=== PATIENT | male | born 1955 | race Caucasian/White ===

== ENCOUNTER 2021-09-28 17:12 | Observation (INO) | payer BC, MEDICARE ==
[2021-09-28] MEDS ORDERED: Dexamethasone 10 MG/ML SDV IVPUSH ONE (17:43)
[2021-09-28] MEDS ORDERED: Albuterol/Ipratropium 3.0-0.5 MG/3 ML Neb Soln NEB ONE ×2 (17:43→18:39)
[2021-09-28] MEDS ORDERED: Magnesium Sulfate (4.06 MEQ/ML) 5 GM/10 ML SDV IV STA (17:43)
--- NOTE | 2021-09-28 17:46 | EDM.PDOC ---
ED HPI GENERAL MEDICAL PROBLEM - General Chief Complaint: Respiratory Problem Stated Complaint: SHORTNESS OF BREATHE,HYPERTENSIVE Time Seen by Provider: 09/28/21 17:24 Source of Information: Reports: Patient History Limitations: Reports: No Limitations - History of Present Illness INITIAL COMMENTS - FREE TEXT/NARRATIVE: Patient is a 6-year-old male with history of high blood pressure and COPD presents today for cough and shortness of breath. Patient has had a productive cough and was concerned he may have had pneumonia as he gets sick quite frequently. Patient arrived he was satting around 70% on room air was placed on oxygen. States that he does have some shortness of breath as well but nothing worse than what his baseline normally does per the patient. Denies any chest pain fever chills abdominal pain no other symptoms. - Related Data Allergies Allergy/AdvReac Type Severity Reaction Status Date / Time No Known Allergies Allergy Verified 09/28/21 17:30 Home Meds: Home Meds Aspirin [Ecotrin EC] 81 mg PO DAILY 12/17/19 [History] Sacubitril/Valsartan [Entresto 24 mg-26 mg Tablet] 1 tab PO ASDIRECTED 12/17/19 [History] atorvaSTATin Calcium [Lipitor] 20 mg PO DAILY 12/17/19 [History] carvediloL [Coreg] 12.5 mg PO DAILY 12/17/19 [History] atorvaSTATin Calcium [Lipitor] 20 mg PO DAILY 30 Days #30 tablet 09/28/21 [Rx] carvediloL [Carvedilol] 12.5 mg PO DAILY 30 Days #30 tablet 09/28/21 [Rx] lisinopriL [Lisinopril] 5 mg PO DAILY 30 Days #30 tablet 09/28/21 [Rx] Past Medical History Cardiovascular History: Reports: CAD, High Cholesterol, Hypertension Respiratory History: Reports: COPD, SOB Musculoskeletal History: Reports: Fracture Endocrine/Metabolic History: Reports: Obesity/BMI 30+ - Past Surgical History Cardiovascular Surgical History: Reports: Coronary Artery Stent, Other (See Below) Musculoskeletal Surgical History: Reports: ORIF Social & Family History - Tobacco Use Second Hand Smoke Exposure: No - Caffeine Use Caffeine Use: Reports: None - Recreational Drug Use Recreational Drug Use: No - Living Situation & Occupation Living situation: Reports: , with Spouse, with Family (Daughter) Occupation: Employed ([employer]) ED ROS GENERAL - Review of Systems Review Of Systems: See Below Constitutional: Reports: No Symptoms HEENT: Reports: No Symptoms Respiratory: Reports: Shortness of Breath Cardiovascular: Reports: No Symptoms Endocrine: Reports: No Symptoms GI/Abdominal: Reports: No Symptoms : Reports: No Symptoms Musculoskeletal: Reports: No Symptoms Skin: Reports: No Symptoms Neurological: Reports: No Symptoms Psychiatric: Reports: No Symptoms Hematologic/Lymphatic: Reports: No Symptoms Immunologic: Reports: No Symptoms ED EXAM, GENERAL - Physical Exam Exam: See Below Exam Limited By: No Limitations General Appearance: Alert, WD/WN, No Apparent Distress Eye Exam: Bilateral Eye: EOMI Throat/Mouth: Normal Inspection Head: Atraumatic, Normocephalic Neck: Normal Inspection Respiratory/Chest: No Respiratory Distress, Lungs Clear, Normal Breath Sounds Cardiovascular: Normal Peripheral Pulses, Regular Rate, Rhythm GI/Abdominal: Normal Bowel Sounds, Soft, Non-Tender Extremities: Normal Inspection, Normal Range of Motion, Non-Tender Neurological: Alert, Oriented, Normal Cognition, Normal Gait Course - Vital Signs Last Recorded V/S: Last Vital Signs Temp 98.4 F 09/28/21 17:28 Pulse 89 09/28/21 17:28 Resp 20 09/28/21 17:28 BP 162/93 H 09/28/21 17:28 Pulse Ox 73 L 09/28/21 17:28 - Orders/Labs/Meds Orders: Active Orders 24 hr Category Date Time Status RT Aerosol Therapy [RC] ASDIRECTED Care 09/28/21 17:44 Active RT Aerosol Therapy [RC] ASDIRECTED Care 09/28/21 18:40 Active Azithromycin [Zithromax] Med 09/28/21 18:45 Active 500 mg PO Q24H Magnesium Sulfate/Water [Magnesium Sulfate in Water 2 Med 09/28/21 18:07 Active GM/50 ML] 2 gm Premix Bag 1 bag IV ONETIME cefTRIAXone [Rocephin in Dextrose,Iso-Osm 1 GM/50 ML] 1 Med 09/28/21 18:33 Active gm Premix Bag 1 bag IV ONETIME Medication Orders Azithromycin (Azithromycin 250 Mg Tab) 500 mg PO Q24H [facility] Last Admin: 09/28/21 18:53 Dose: 500 mg Documented by: ADITYA Magnesium Sulfate 2 gm/ Premix 50 mls @ 12.5 mls/hr IV ONETIME ONE Stop: 09/28/21 22:06 Last Admin: 09/28/21 18:18 Dose: Not Given Documented by: ADITYA Ceftriaxone Sodium/Dextrose 1 (gm/ Premix) 50 mls @ 100 mls/hr IV ONETIME ONE Stop: 09/28/21 19:02 Last Admin: 09/28/21 18:54 Dose: 100 mls/hr Documented by: ADITYA Labs: Laboratory Tests 09/28/21 09/28/21 09/28/21 Range/Units 17:23 17:23 18:02 WBC 9.46 (4.0-11.0) K/uL RBC 6.07 H (4.50-5.90) M/uL Hgb 18.5 H (13.0-17.0) g/dL Hct 57.3 H (38.0-50.0) % MCV 94.4 (80.0-98.0) fL MCH 30.5 (27.0-32.0) pg MCHC 32.3 (31.0-37.0) g/dL RDW Std Deviation 56.1 (28.0-62.0) fl RDW Coeff of Imtiaz 16 H (11.0-15.0) % Plt Count 140 L (150-400) K/uL MPV 11.90 (7.40-12.00) fL Neut % (Auto) 60.5 (48.0-80.0) % Lymph % (Auto) 22.0 (16.0-40.0) % [place] % (Auto) 17.0 H (0.0-15.0) % Eos % (Auto) 0.3 (0.0-7.0) % Baso % (Auto) 0.2 (0.0-1.5) % Neut # (Auto) 5.7 (1.4-5.7) K/uL Lymph # (Auto) 2.1 (0.6-2.4) K/uL [place] # (Auto) 1.6 H (0.0-0.8) K/uL Eos # (Auto) 0.0 (0.0-0.7) K/uL Baso # (Auto) 0.0 (0.0-0.1) K/uL Nucleated RBC % 0.0 /100WBC Nucleated RBCs # 0 K/uL Sodium 142 (136-148) mmol/L Potassium 4.1 (3.5-5.1) mmol/L Chloride 103 (98-107) mmol/L Carbon Dioxide 32.1 H (21.0-32.0) mmol/L BUN 20 H (7.0-18.0) mg/dL Creatinine 0.9 (0.8-1.3) mg/dL Est Cr Clr Drug Dosing 88.62 mL/min Estimated GFR (MDRD) > 60.0 ml/min Glucose 99 (74-106) mg/dL Calcium 9.1 (8.5-10.1) mg/dL Total Bilirubin 0.8 (0.2-1.0) mg/dL AST 38 H (15-37) IU/L ALT 42 (14-63) IU/L Alkaline Phosphatase 84 (46-116) U/L Troponin I < 0.050 (0.000-0.056) ng/mL Total Protein 8.0 (6.4-8.2) g/dL Albumin 3.8 (3.4-5.0) g/dL Globulin 4.2 H (2.6-4.0) g/dL Albumin/Globulin Ratio 0.9 (0.9-1.6) SARS-CoV-2 RNA ([place]) NEGATIVE (NEGATIVE) Meds: Medications Generic Name Dose Route Start Last Admin Trade Name Freq PRN Reason Stop Dose Admin Azithromycin 500 mg 09/28/21 18:45 09/28/21 18:53 Azithromycin 250 Mg Tab PO 500 mg Q24H FRAN Administration Magnesium Sulfate 2 gm/ Premix 50 mls @ 12.5 mls/hr 09/28/21 18:07 09/28/21 18:18 IV 09/28/21 22:06 Not Given ONETIME ONE Ceftriaxone Sodium/Dextrose 1 50 mls @ 100 mls/hr 09/28/21 18:33 09/28/21 18:54 gm/ Premix IV 09/28/21 19:02 100 mls/hr ONETIME ONE Administration Discontinued Medications Generic Name Dose Route Start Last Admin Trade Name Freq PRN Reason Stop Dose Admin Albuterol/Ipratropium 3 ml 09/28/21 17:43 09/28/21 18:14 Albuterol/Ipratropium 3.0-0.5 Mg/3 Ml Neb Soln NEB 09/28/21 17:44 3 ml ONETIME ONE Administration Albuterol/Ipratropium 3 ml 09/28/21 18:39 09/28/21 18:53 Albuterol/Ipratropium 3.0-0.5 Mg/3 Ml Neb Soln NEB 09/28/21 18:40 3 ml ONETIME ONE Administration Dexamethasone 10 mg 09/28/21 17:43 09/28/21 18:17 Dexamethasone 10 Mg/Ml Sdv IVPUSH 09/28/21 17:44 10 mg ONETIME ONE Administration Magnesium Sulfate 1 gm/ Sodium 102 mls @ 102 mls/hr 09/28/21 18:00 09/28/21 18:17 Chloride IV 09/28/21 18:59 102 mls/hr ONETIME ONE Administration - Re-Assessments/Exams Free Text/Narrative Re-Assessment/Exam: 09/28/21 18:56 Patient still satting 77% after receiving steroids and magnesium neb treatment. Patient will be admitted for COPD exacerbation patient also given antibiotics. Departure - Departure Time of Disposition: 18:56 Disposition: Home, Self-Care 01 Condition: Good, Fair Clinical Impression: COPD exacerbation - Discharge Information *PRESCRIPTION DRUG MONITORING PROGRAM REVIEWED*: Not Applicable *COPY OF PRESCRIPTION DRUG MONITORING REPORT IN PATIENT ROBERT: Not Applicable Prescriptions: carvediloL [Carvedilol] 12.5 mg PO DAILY 30 Days #30 tablet atorvaSTATin Calcium [Lipitor] 20 mg PO DAILY 30 Days #30 tablet lisinopriL [Lisinopril] 5 mg PO DAILY 30 Days #30 tablet Forms: ED Department Discharge Critical Care Note - Critical Care Note Total Time (mins): 45 Comments: Critical Care Procedure Note Authorized and Performed by: Dr. Rodriguez Total critical care time: Approximately Due to a high probability of clinically significant, life threatening deterioration, the patient required my highest level of preparedness to i ntervene emergently and I personally spent this critical care time directly and personally managing the patient. This critical care time included obtaining a history; examining the patient; pulse oximetry; ordering and review of studies; arranging urgent treatment with development of a management plan; evaluation of patient's response to treatment; frequent reassessment; and, discussions with other providers. This critical care time was performed to assess and manage the high probability of imminent, life-threatening deterioration that could result in multi-organ failure. It was exclusive of separately billable procedures and treating other patients and teaching time. Sepsis Event Note (ED) - Evaluation Sepsis Screening Result: No Definite Risk - Focused Exam Vital Signs: Vital Signs Temp Pulse Resp BP Pulse Ox 09/28/21 17:28 98.4 F 89 20 162/93 H 73 L - My Orders Last 24 Hours: My Active Orders 09/28/21 17:44 RT Aerosol Therapy [RC] ASDIRECTED 09/28/21 18:07 Magnesium Sulfate/Water [Magnesium Sulfate in Water 2 GM/50 ML] 2 gm Premix Bag 1 bag IV ONETIME 09/28/21 18:33 cefTRIAXone [Rocephin in Dextrose,Iso-Osm 1 GM/50 ML] 1 gm Premix Bag 1 bag IV ONETIME 09/28/21 18:40 RT Aerosol Therapy [RC] ASDIRECTED 09/28/21 18:45 Azithromycin [Zithromax] 500 mg PO Q24H - Assessment/Plan Last 24 Hours: My Active Orders 09/28/21 17:44 RT Aerosol Therapy [RC] ASDIRECTED 09/28/21 18:07 Magnesium Sulfate/Water [Magnesium Sulfate in Water 2 GM/50 ML] 2 gm Premix Bag 1 bag IV ONETIME 09/28/21 18:33 cefTRIAXone [Rocephin in Dextrose,Iso-Osm 1 GM/50 ML] 1 gm Premix Bag 1 bag IV ONETIME 09/28/21 18:40 RT Aerosol Therapy [RC] ASDIRECTED 09/28/21 18:45 Azithromycin [Zithromax] 500 mg PO Q24H Plan: Patient is a 6-year-old male presents today for shortness of breath and cough. Patient was satting 78% on room air is now 2 L at 100%. Patient has history of COPD we will give patient steroids nebulizers x-ray EKG and reassess.
[2021-09-28 18:04] LABS: BLOOD UREA NITROGEN,BUN 20 mg/dL (7.0-18.0); CARBON DIOXIDE,CO2 32.1 mmol/L (21.0-32.0); CHLORIDE,CL 103 mmol/L (98-107); GLUCOSE RANDOM 99 mg/dL (74-106); POTASSIUM,K 4.1 mmol/L (3.5-5.1); SODIUM,NA 142 mmol/L (136-148)
[2021-09-28] MEDS ORDERED: Magnesium Sulfate/Water 2 GM in Premix Bag 1 BAG IV ONE (18:07)
--- NOTE | 2021-09-28 18:32 | CR ---
HISTORY: Shortness of breath. COPD. TECHNIQUE: Portable frontal view the chest. COMPARISON: None. FINDINGS: No airspace consolidation. No pleural effusion or pneumothorax. Pulmonary vasculature is within normal limits. Cardiomediastinal silhouette is upper normal size. Aortic atherosclerotic calcifications. IMPRESSION: No acute cardiopulmonary abnormality. Dictated by Major Aponte MD @ 09/28/2021 6:31:21 PM (Electronically Signed)
[2021-09-28] MEDS ORDERED: cefTRIAXone 1 GM in Premix Bag 1 BAG IV ONE (18:33)
[2021-09-28] MEDS ORDERED: Azithromycin 250 MG Tab PO SCH (18:45)
[2021-09-28] MEDS: Albuterol/Ipratropium 3.0-0.5 MG/3 ML Neb Soln NEB SCH (23:12)
[2021-09-28] MEDS ORDERED: Carvedilol 3.125 MG Tab PO SCH (23:45)
--- NOTE | 2021-09-28 23:56 | PCM.HP.2 ---
H&P History of Present Illness - General Date of Service: 09/28/21 Admit Problem/Dx: Admission Diagnosis/Problem Admission Diagnosis/Problem COPD, Moderate chronic obstructive pulmonary disease - History of Present Illness Initial Comments - Free Text/Narative: 66 yo male with pmh of HTN, CAD, COPD who presents to the ED with complaint of productive cough of greenish sputum for past several days. He thought he needed antibiotics for a pneumonia. He denies any shortness of breath, chest pain, or fevers. He reports he has been out of his medications for six months. He has entresto on his medication list but denies any history of CHF. In the ED he was noted to be satting 78% on RA. He was given duonebs and solumedrol for suspect COPD exacerbation and is now feeling better. He is still requiring 2 L NC to keep sats above 90%. - Related Data Allergies/Adverse Reactions: Allergies Allergy/AdvReac Type Severity Reaction Status Date / Time No Known Allergies Allergy Verified 09/28/21 21:16 Home Medications: Home Meds atorvaSTATin Calcium [Lipitor] 20 mg PO DAILY 30 Days #30 tablet 09/28/21 [Rx] carvediloL [Carvedilol] 12.5 mg PO DAILY 30 Days #30 tablet 09/28/21 [Rx] lisinopriL [Lisinopril] 5 mg PO DAILY 30 Days #30 tablet 09/28/21 [Rx] Albuterol Sulfate [Albuterol Sulfate Hfa] 8.5 gm IH Q4H #1 hfa.aer.ad 09/29/21 [Rx] Aspirin [Ecotrin EC] 81 mg PO DAILY #30 09/29/21 [Rx] Fluticasone Propion/Salmeterol [Advair 250-50 Diskus] 1 each IH Q8H #1 disk.w.dev 09/29/21 [Rx] levoFLOXacin [Levaquin] 750 mg PO DAILY #6 tab 09/29/21 [Rx] predniSONE 40 mg PO WITHBREAKFAST #5 tab 09/29/21 [Rx] Past Medical History - Past Health History Medical/Surgical History: Denies Medical/Surgical History HEENT History: Reports: None Cardiovascular History: Reports: CAD, High Cholesterol, Hypertension Respiratory History: Reports: COPD, SOB Gastrointestinal History: Reports: None Other Genitourinary History: Pt voiding freely, denies trouble emptying bladder. Musculoskeletal History: Reports: Fracture Endocrine/Metabolic History: Reports: Obesity/BMI 30+ - Infectious Disease History Infectious Disease History: Reports: None - Past Surgical History Cardiovascular Surgical History: Reports: Coronary Artery Stent, Other (See Below) Musculoskeletal Surgical History: Reports: ORIF Social & Family History - Family History Family Medical History: No Pertinent Family History - Tobacco Use Years of Tobacco use: 30 Packs/Tins Daily: 1 Second Hand Smoke Exposure: No - Caffeine Use Caffeine Use: Reports: None - Alcohol Use Days Per Week of Alcohol Use: 7 Number of Drinks Per Day: 1 Total Drinks Per Week: 7 Date of Last Drink: 09/27/21 Time of Last Drink: 18:00 - Recreational Drug Use Recreational Drug Use: No - Living Situation & Occupation Living situation: Reports: , with Spouse, with Family (Daughter) Occupation: Employed ([employer]) H&P Review of Systems - Review of Systems: Review Of Systems: Comprehensive ROS is negative, except as noted in HPI. Exam - Exam Exam: See Below - Vital Signs Vital Signs: Last Vital Signs Temp 36.6 C 09/28/21 23:14 Pulse 82 09/28/21 23:14 Resp 18 09/28/21 23:14 BP 146/78 H 09/28/21 23:14 Pulse Ox 90 L 09/28/21 23:14 Weight: 108.862 kg - Exam General: Alert, Oriented Neck: Supple Lungs: Clear to Auscultation, Normal Respiratory Effort Cardiovascular: Regular Rate, Regular Rhythm GI/Abdominal Exam: Normal Bowel Sounds, Soft, Non-Tender Extremities: Non-Tender, No Pedal Edema Skin: Warm, Dry, Intact Neurological: Cranial Nerves Intact - Patient Data Lab Results Last 24 hrs: Laboratory Results - last 24 hr 09/28/21 09/28/21 09/28/21 Range/Units 17:23 17:23 18:02 WBC 9.46 (4.0-11.0) K/uL RBC 6.07 H (4.50-5.90) M/uL Hgb 18.5 H (13.0-17.0) g/dL Hct 57.3 H (38.0-50.0) % MCV 94.4 (80.0-98.0) fL MCH 30.5 (27.0-32.0) pg MCHC 32.3 (31.0-37.0) g/dL RDW Std Deviation 56.1 (28.0-62.0) fl RDW Coeff of Imtiaz 16 H (11.0-15.0) % Plt Count 140 L (150-400) K/uL MPV 11.90 (7.40-12.00) fL Neut % (Auto) 60.5 (48.0-80.0) % Lymph % (Auto) 22.0 (16.0-40.0) % [place] % (Auto) 17.0 H (0.0-15.0) % Eos % (Auto) 0.3 (0.0-7.0) % Baso % (Auto) 0.2 (0.0-1.5) % Neut # (Auto) 5.7 (1.4-5.7) K/uL Lymph # (Auto) 2.1 (0.6-2.4) K/uL [place] # (Auto) 1.6 H (0.0-0.8) K/uL Eos # (Auto) 0.0 (0.0-0.7) K/uL Baso # (Auto) 0.0 (0.0-0.1) K/uL Nucleated RBC % 0.0 /100WBC Nucleated RBCs # 0 K/uL Sodium 142 (136-148) mmol/L Potassium 4.1 (3.5-5.1) mmol/L Chloride 103 (98-107) mmol/L Carbon Dioxide 32.1 H (21.0-32.0) mmol/L BUN 20 H (7.0-18.0) mg/dL Creatinine 0.9 (0.8-1.3) mg/dL Est Cr Clr Drug Dosing 88.62 mL/min Estimated GFR (MDRD) > 60.0 ml/min Glucose 99 (74-106) mg/dL Calcium 9.1 (8.5-10.1) mg/dL Total Bilirubin 0.8 (0.2-1.0) mg/dL AST 38 H (15-37) IU/L ALT 42 (14-63) IU/L Alkaline Phosphatase 84 (46-116) U/L Troponin I < 0.050 (0.000-0.056) ng/mL Total Protein 8.0 (6.4-8.2) g/dL Albumin 3.8 (3.4-5.0) g/dL Globulin 4.2 H (2.6-4.0) g/dL Albumin/Globulin Ratio 0.9 (0.9-1.6) SARS-CoV-2 RNA ([place]) NEGATIVE (NEGATIVE) Result Diagrams: 09/29/21 06:31 09/29/21 06:31 Sepsis Event Note - Evaluation Sepsis Screening Result: No Definite Risk - Focused Exam Vital Signs: Vital Signs Temp Pulse Resp BP Pulse Ox 09/28/21 23:14 36.6 C 82 18 146/78 H 90 L 09/28/21 19:44 36.4 C 86 18 176/88 H 95 09/28/21 19:33 84 18 174/86 H 95 09/28/21 17:28 36.9 C 89 20 162/93 H 73 L - Problem List (1) Acute and chronic respiratory failure with hypoxia SNOMED Code(s): 71124534, 837237232 ICD Code: J96.21 - ACUTE AND CHRONIC RESPIRATORY FAILURE WITH HYPOXIA Status: Acute (2) COPD exacerbation SNOMED Code(s): 984737756 ICD Code: J44.1 - CHRONIC OBSTRUCTIVE PULMONARY DISEASE W (ACUTE) EXACERBATION Status: Acute Problem List Initiated/Reviewed/Updated: Yes Orders Last 24hrs: Active Orders 24 hr Category Date Time Status Patient Status [ADT] Routine ADT 09/28/21 18:57 Active RT Aerosol Therapy [RC] ASDIRECTED Care 09/28/21 17:44 Active RT Aerosol Therapy [RC] ASDIRECTED Care 09/28/21 18:40 Active RT Aerosol Therapy [RC] ASDIRECTED Care 09/28/21 21:36 Active Regular Diet [DIET] Diet 09/29/21 Breakfast Active BASIC METABOLIC PANEL,BMP [CHEM] Routine Lab 09/29/21 05:30 Ordered CBC WITH AUTO DIFF [HEME] Routine Lab 09/29/21 05:30 Ordered Albuterol/Ipratropium [DuoNeb 3.0-0.5 MG/3 ML] Med 09/29/21 00:00 Active 3 ml NEB Q6HRRT Azithromycin [Zithromax] Med 09/28/21 18:45 Active 500 mg PO Q24H carvediloL [Coreg] Med 09/28/21 23:45 Ordered 12.5 mg PO Q24H cefTRIAXone [Rocephin in Dextrose,Iso-Osm 1 GM/50 ML] 1 Med 09/29/21 18:00 Ordered gm Premix Bag 1 bag IV Q24H Medication Orders Albuterol/Ipratropium (Albuterol/Ipratropium 3.0-0.5 Mg/3 Ml Neb Soln) 3 ml NEB Q6HRRT [facility] Last Admin: 09/28/21 23:12 Dose: 3 ml Documented by: OTILIO Azithromycin (Azithromycin 250 Mg Tab) 500 mg PO Q24H [facility] Last Admin: 09/28/21 18:53 Dose: 500 mg Documented by: ADITYA Carvedilol (Carvedilol 3.125 Mg Tab) 12.5 mg PO Q24H [facility] Ceftriaxone Sodium/Dextrose 1 (gm/ Premix) 50 mls @ 100 mls/hr IV Q24H [facility] Assessment/Plan Comment:: 66 yo male admitted for COPD exacerbation with hypoxica Hypoxia: on 2 L NC COPD exacerbation: will treat with solumedrol, duonebs, and antibiotics. HTN: will restart HTN medications.
[2021-09-29] MEDS: Albuterol/Ipratropium 3.0-0.5 MG/3 ML Neb Soln NEB SCH ×2 (05:50→13:39)
[2021-09-29 07:32] LABS: BLOOD UREA NITROGEN,BUN 18 mg/dL (7.0-18.0); CARBON DIOXIDE,CO2 32.5 mmol/L (21.0-32.0); CHLORIDE,CL 106 mmol/L (98-107); GLUCOSE RANDOM 126 mg/dL (74-106); POTASSIUM,K 4.8 mmol/L (3.5-5.1); SODIUM,NA 142 mmol/L (136-148)
[2021-09-29] MEDS ORDERED: methylPREDNISolone Sodium Succinate 40 MG/1 ML SDV IVPUSH SCH (09:00)
--- NOTE | 2021-09-29 13:35 | PCM.DCSUM1 ---
Discharge Summary - Hospital Course Free Text/Narrative:: The patient is a 66-year-old male, on day 2 of service, who has a significant past medical history of chronic obstructive pulmonary disease and congestive heart failure, who was admitted to the medical floor due to a COPD exacerbation. Throughout his short hospital stay the patient was treated with various antibiotics including Rocephin 1 g per IV route every 24 hours and azithromycin 500 mg per oral route every 24 hours. To decrease the inflammation in his lungs and to improve breathing he was also treated with Solu-Medrol 60 mg per IV route and duo nebulizer treatments. Due to his CHF history the patient was also treated with carvedilol 12.5 mg per oral route every 24 hours. He was also supplied with oxygen, and was saturating 95% on 2 L. This morning he had a walking trial done which deciphered that his home oxygen requirement would be 2 L as well and that is what he will be discharged with via [employer]. Upon discharge the patient will be supplied with a prescription for Levaquin in order to treat any underlying bacterial infection that he is suffering from, he will be given an albuterol inhaler as well as Advair to improve his breathing. He will be given prescriptions for his past medical history including aspirin, atorvastatin, carvedilol, and lisinopril. The patient is a smoker and has been advised to quit smoking. He is also been educated on being compliant with his medication and taking them at scheduled times. Lastly he has been counseled on returning to the hospital if he has increasing respiratory difficulty, shortness of breath, chest pain, and/or palpitations. The patient is also to follow-up with his primary care provider in 1 to 2 weeks time. The patient is now stable and can be discharged home safely. - Discharge Data Discharge Date: 09/29/21 Discharge Disposition: Home, Self-Care 01 Condition: Stable - Referral to Home Health Primary Care Physician: PCP None - Patient Instructions Diet: Heart Healthy Diet Activity: As Tolerated Showering/Bathing: May Shower Other/Special Instructions: -Return to the hospital if you have increasing respiratory difficulty, shortness of breath, chest pain, palpitations. -Take your medication at scheduled times. -Follow-up with your PCP Dr. Farfan - Discharge Plan *PRESCRIPTION DRUG MONITORING PROGRAM REVIEWED*: Not Applicable *COPY OF PRESCRIPTION DRUG MONITORING REPORT IN PATIENT ROBERT: Not Applicable Prescriptions/Med Rec: Fluticasone Propion/Salmeterol [Advair 250-50 Diskus] 1 each IH Q8H #1 disk.w.dev Albuterol Sulfate [Albuterol Sulfate Hfa] 8.5 gm IH Q4H #1 hfa.aer.ad carvediloL [Carvedilol] 12.5 mg PO DAILY 30 Days #30 tablet Aspirin [Ecotrin EC] 81 mg PO DAILY #30 levoFLOXacin [Levaquin] 750 mg PO DAILY #6 tab atorvaSTATin Calcium [Lipitor] 20 mg PO DAILY 30 Days #30 tablet lisinopriL [Lisinopril] 5 mg PO DAILY 30 Days #30 tablet predniSONE 40 mg PO WITHBREAKFAST #5 tab Home Medications: Home Meds atorvaSTATin Calcium [Lipitor] 20 mg PO DAILY 30 Days #30 tablet 09/28/21 [Rx] carvediloL [Carvedilol] 12.5 mg PO DAILY 30 Days #30 tablet 09/28/21 [Rx] lisinopriL [Lisinopril] 5 mg PO DAILY 30 Days #30 tablet 09/28/21 [Rx] Albuterol Sulfate [Albuterol Sulfate Hfa] 8.5 gm IH Q4H #1 hfa.aer.ad 09/29/21 [Rx] Aspirin [Ecotrin EC] 81 mg PO DAILY #30 09/29/21 [Rx] Fluticasone Propion/Salmeterol [Advair 250-50 Diskus] 1 each IH Q8H #1 disk.w.dev 09/29/21 [Rx] levoFLOXacin [Levaquin] 750 mg PO DAILY #6 tab 09/29/21 [Rx] predniSONE 40 mg PO WITHBREAKFAST #5 tab 09/29/21 [Rx] Oxygen Therapy Mode: Nasal Cannula Oxygen Flow Rate (L/min): 2 Patient Handouts: Chronic Respiratory Failure, Carvedilol Tablets, Home Oxygen Use, Adult, Atorvastatin tablets, Lisinopril Oral Tablets, Acute Respiratory Failure, Adult Referrals: Zaid Farfan MD [Physician] - 10/08/21 4:00 pm - Discharge Summary/Plan Comment DC Time >30 min.: Yes Total # of Minutes for Discharge Time: 35 minutes - Review of Systems General: Denies: Fever, Weakness, Fatigue HEENT: Denies: Headaches, Sore Throat Pulmonary: Denies: Shortness of Breath, Cough Cardiovascular: Denies: Chest Pain, Palpitations Gastrointestinal: Denies: Abdominal Pain Genitourinary: Denies: Dysuria - Patient Data Vitals - Most Recent: Last Vital Signs Temp 98.3 F 09/29/21 11:35 Pulse 71 09/29/21 11:35 Resp 16 09/29/21 11:35 BP 132/67 09/29/21 11:35 Pulse Ox 85 L 09/29/21 11:35 Weight - Most Recent: 240 lb I&O - Last 24 hours: Intake & Output 09/28/21 09/29/21 09/29/21 22:59 06:59 14:59 Intake Total 300 Balance 300 Lab Results - Last 24 hrs: Laboratory Results - last 24 hr 09/28/21 09/28/21 09/28/21 Range/Units 17:23 17:23 18:02 WBC 9.46 (4.0-11.0) K/uL RBC 6.07 H (4.50-5.90) M/uL Hgb 18.5 H (13.0-17.0) g/dL Hct 57.3 H (38.0-50.0) % MCV 94.4 (80.0-98.0) fL MCH 30.5 (27.0-32.0) pg MCHC 32.3 (31.0-37.0) g/dL RDW Std Deviation 56.1 (28.0-62.0) fl RDW Coeff of Imtiaz 16 H (11.0-15.0) % Plt Count 140 L (150-400) K/uL MPV 11.90 (7.40-12.00) fL Neut % (Auto) 60.5 (48.0-80.0) % Lymph % (Auto) 22.0 (16.0-40.0) % Jay % (Auto) 17.0 H (0.0-15.0) % Eos % (Auto) 0.3 (0.0-7.0) % Baso % (Auto) 0.2 (0.0-1.5) % Neut # (Auto) 5.7 (1.4-5.7) K/uL Lymph # (Auto) 2.1 (0.6-2.4) K/uL Jay # (Auto) 1.6 H (0.0-0.8) K/uL Eos # (Auto) 0.0 (0.0-0.7) K/uL Baso # (Auto) 0.0 (0.0-0.1) K/uL Nucleated RBC % 0.0 /100WBC Nucleated RBCs # 0 K/uL Sodium 142 (136-148) mmol/L Potassium 4.1 (3.5-5.1) mmol/L Chloride 103 (98-107) mmol/L Carbon Dioxide 32.1 H (21.0-32.0) mmol/L BUN 20 H (7.0-18.0) mg/dL Creatinine 0.9 (0.8-1.3) mg/dL Est Cr Clr Drug Dosing 88.62 mL/min Estimated GFR (MDRD) > 60.0 ml/min Glucose 99 (74-106) mg/dL Calcium 9.1 (8.5-10.1) mg/dL Total Bilirubin 0.8 (0.2-1.0) mg/dL AST 38 H (15-37) IU/L ALT 42 (14-63) IU/L Alkaline Phosphatase 84 (46-116) U/L Troponin I < 0.050 (0.000-0.056) ng/mL Total Protein 8.0 (6.4-8.2) g/dL Albumin 3.8 (3.4-5.0) g/dL Globulin 4.2 H (2.6-4.0) g/dL Albumin/Globulin Ratio 0.9 (0.9-1.6) SARS-CoV-2 RNA ([facility]) NEGATIVE (NEGATIVE) 09/29/21 09/29/21 Range/Units 06:31 06:31 WBC 4.38 (4.0-11.0) K/uL RBC 6.03 H (4.50-5.90) M/uL Hgb 18.1 H (13.0-17.0) g/dL Hct 57.4 H (38.0-50.0) % MCV 95.2 (80.0-98.0) fL MCH 30.0 (27.0-32.0) pg MCHC 31.5 (31.0-37.0) g/dL RDW Std Deviation 57.0 (28.0-62.0) fl RDW Coeff of Imtiaz 16 H (11.0-15.0) % Plt Count 131 L (150-400) K/uL MPV 11.90 (7.40-12.00) fL Neut % (Auto) 78.7 (48.0-80.0) % Lymph % (Auto) 15.8 L (16.0-40.0) % Jay % (Auto) 5.5 (0.0-15.0) % Eos % (Auto) 0.0 (0.0-7.0) % Baso % (Auto) 0.0 (0.0-1.5) % Neut # (Auto) 3.5 (1.4-5.7) K/uL Lymph # (Auto) 0.7 (0.6-2.4) K/uL Jay # (Auto) 0.2 (0.0-0.8) K/uL Eos # (Auto) 0.0 (0.0-0.7) K/uL Baso # (Auto) 0.0 (0.0-0.1) K/uL Nucleated RBC % 0.0 /100WBC Nucleated RBCs # 0 K/uL Sodium 142 (136-148) mmol/L Potassium 4.8 (3.5-5.1) mmol/L Chloride 106 (98-107) mmol/L Carbon Dioxide 32.5 H (21.0-32.0) mmol/L BUN 18 (7.0-18.0) mg/dL Creatinine 0.8 (0.8-1.3) mg/dL Est Cr Clr Drug Dosing 99.69 mL/min Estimated GFR (MDRD) > 60.0 ml/min Glucose 126 H (74-106) mg/dL Calcium 8.5 (8.5-10.1) mg/dL Total Bilirubin (0.2-1.0) mg/dL AST (15-37) IU/L ALT (14-63) IU/L Alkaline Phosphatase (46-116) U/L Troponin I (0.000-0.056) ng/mL Total Protein (6.4-8.2) g/dL Albumin (3.4-5.0) g/dL Globulin (2.6-4.0) g/dL Albumin/Globulin Ratio (0.9-1.6) SARS-CoV-2 RNA ([facility]) (NEGATIVE) Med Orders - Current: Current Medications Albuterol/Ipratropium (Albuterol/Ipratropium 3.0-0.5 Mg/3 Ml Neb Soln) 3 ml NEB Q6HRRT [facility] Last Admin: 09/29/21 05:50 Dose: 3 ml Documented by: Azithromycin (Azithromycin 250 Mg Tab) 500 mg PO Q24H [facility] Last Admin: 09/28/21 18:53 Dose: 500 mg Documented by: Carvedilol (Carvedilol 12.5 Mg Tab) 12.5 mg PO DAILY [facility] Ceftriaxone Sodium/Dextrose 1 (gm/ Premix) 50 mls @ 100 mls/hr IV Q24H [facility] Methylprednisolone Sodium Succinate (Methylprednisolone Sodium Succinate 40 Mg/1 Ml Sdv) 60 mg IVPUSH DAILY [facility] Last Admin: 09/29/21 08:55 Dose: 60 mg Documented by: Discontinued Medications Albuterol/Ipratropium (Albuterol/Ipratropium 3.0-0.5 Mg/3 Ml Neb Soln) 3 ml NEB ONETIME ONE Stop: 09/28/21 17:44 Last Admin: 09/28/21 18:14 Dose: 3 ml Documented by: Albuterol/Ipratropium (Albuterol/Ipratropium 3.0-0.5 Mg/3 Ml Neb Soln) 3 ml NEB ONETIME ONE Stop: 09/28/21 18:40 Last Admin: 09/28/21 18:53 Dose: 3 ml Documented by: Carvedilol (Carvedilol 3.125 Mg Tab) 12.5 mg PO Q24H [facility] Last Admin: 09/29/21 01:26 Dose: 12.5 mg Documented by: Dexamethasone (Dexamethasone 10 Mg/Ml Sdv) 10 mg IVPUSH ONETIME ONE Stop: 09/28/21 17:44 Last Admin: 09/28/21 18:17 Dose: 10 mg Documented by: Magnesium Sulfate 1 gm/ Sodium (Chloride) 102 mls @ 102 mls/hr IV ONETIME ONE Stop: 09/28/21 18:59 Last Admin: 09/28/21 18:17 Dose: 102 mls/hr Documented by: Magnesium Sulfate 2 gm/ Premix 50 mls @ 12.5 mls/hr IV ONETIME ONE Stop: 09/28/21 22:06 Last Admin: 09/28/21 18:18 Dose: Not Given Documented by: Ceftriaxone Sodium/Dextrose 1 (gm/ Premix) 50 mls @ 100 mls/hr IV ONETIME ONE Stop: 09/28/21 19:02 Last Admin: 09/28/21 18:54 Dose: 100 mls/hr Documented by: - Exam General: Reports: Alert, Oriented, Cooperative HEENT: Reports: Mucous Membr. Moist/[place] Neck: Reports: Trachea Midline Lungs: Reports: Clear to Auscultation, Normal Respiratory Effort Cardiovascular: Reports: Regular Rate, Regular Rhythm GI/Abdominal Exam: Normal Bowel Sounds, Soft, Non-Tender
[2021-09-29] MEDS ORDERED: cefTRIAXone 1 GM in Premix Bag 1 BAG IV SCH (18:00)
[2021-09-30] MEDS ORDERED: Carvedilol 12.5 MG Tab PO SCH (09:00)
== END 2021-09-29 15:10 | disposition home or self-care (01) ==
LOC: MW.ED 17:12 → MW.MS 18:57
PROVIDERS: ADMIT Internal Medicine; ATTEND Internal Medicine
DX: J44.1 Chronic obstructive pulmonary disease with (acute) exacerbation (principal); J96.21 Acute and chronic respiratory failure with hypoxia; I10 Essential (primary) hypertension; I25.10 Atherosclerotic heart disease of native coronary artery without angina pectoris; Z79.899 Other long term (current) drug therapy; Z79.82 Long term (current) use of aspirin; E78.00 Pure hypercholesterolemia, unspecified; E66.9 Obesity, unspecified; Z98.890 Other specified postprocedural states; Z20.822 Contact with and (suspected) exposure to COVID-19
CPT/HCPCS: 36415; 71045; 80048; 80053; 84484; 85025; 93005; 94640; 96365; 96368; 96375; 99285; A9270; G0378; J0696; J1100; J2920; J3475; U0002; J7620-GY

== ENCOUNTER 2021-10-15 10:34 | Emergency (ER) | payer MEDICARE ==
--- NOTE | 2021-10-15 10:38 | EDM.PDOC ---
ED HPI GENERAL MEDICAL PROBLEM - General Chief Complaint: Respiratory Problem Stated Complaint: SOB Time Seen by Provider: 10/15/21 10:35 Source of Information: Reports: Patient History Limitations: Reports: No Limitations - History of Present Illness INITIAL COMMENTS - FREE TEXT/NARRATIVE: HISTORY AND PHYSICAL: History of present illness: Patient is a 66-year-old male who presents to the emergency room with complaints of shortness of breath. Patient states he is chronically short of breath due to his COPD. He was seen in the emergency room on 09/28/2021 for increased ryann rtness of breath and cough. At that time he was discharged home with steroids and states he did feel somewhat better. Stopped taking the steroids last week and feels like he is progressively getting more short of breath again. Patient states he does have oxygen available to him, uses it as needed and at nighttime. Upon arrival his oxygen saturation is 86% on room air. Denies any distal extremity edema. Patient denies any fever, chills, headache, change in vision, syncope or near syncope. Denies any chest pain, back pain, abdominal pain, nausea, vomiting, diarrhea, constipation or dysuria. Has not noted any blood in urine or stool. Patient has been eating and drinking appropriately. No recent travel or sick contacts. Review of systems: As per history of present illness and below otherwise all systems reviewed and negative. Past medical history: As per history of present illness and as reviewed below otherwise noncontributory. Surgical history: As per history of present illness and as reviewed below otherwise noncontributory. Social history: See social history for further information Family history: As per history of present illness and as reviewed below otherwise non contributory. Physical exam: General: Well developed and well nourished 66-year-old male. Alert and orientated x 3. Nontoxic in appearance and in no acute distress. Vital signs are stable and have been reviewed by me. Nursing notes were reviewed. HEENT: Atraumatic, normocephalic, pupils equal and reactive bilaterally, negative for conjunctival pallor or scleral icterus, mucous membranes moist, t rachea midline. No drooling or trismus noted. No meningeal signs. No hot potato voice noted. Lungs: Expiratory wheezing noted to the right anterior upper lobe, otherwise diminished throughout. No rales, or rhonchi. Chest nontender. Normal work of breathing, no accessory muscles used. Heart: S1S2, regular rate and rhythm without overt murmur, gallops, or rubs. No JVD. No peripheral edema Abdomen: Soft, nondistended, nontender. Normoactive bowel sounds. Negative for masses or costovertebral tenderness. Skin: Intact, warm, dry. No lesions or rashes noted. Hematologic: No petechiae or purpra. Mucosa appropriate color and normal nail bed color and refill. Extremities: Atraumatic, moves all extremities per self without difficulty or deficits, negative for cords or calf pain. No pitting edema noted. Strong pedal and pretibial pulses bilaterally. Neurovascular unremarkable. Neuro: Awake, alert, oriented. Cranial nerves II through XII unremarkable. Cerebellum unremarkable. Motor and sensory unremarkable throughout. Exam nonfocal. Psychiatric: Mood and affect are appropriate. Normal thought process. Answering questions appropriately. Please note that the patient was seen and evaluated during the 2019 SARS-CoV-2 novel coronavirus pandemic period. Community viral transmission is ongoing at time of this encounter and the emergency department is operating under pandemic response procedures. Medical Decision Making: Patient is a 66-year-old male who presents to the emergency room with complaints of shortness of breath. Patient has a history of COPD and does use oxygen occasionally at home. States he mostly uses it at nighttime. Was recently seen in the emergency room for shortness of breath and had been placed on a course of steroids. Finished the prednisone 1 week ago and believes the shortness of breath is gradually getting worse. Physical exam reveals some expiratory wheezing to the right upper lobe, otherwise diminished. He has no pitting edema. Patient's blood pressure is elevated, he states he did not take any of his medications this morning. Patient mentions concern that his lisinopril or carvedilol could be causing his shortness of breath. He states he did speak with a pharmacist who states this could be a side effect from his blood pressure medications. He is asking for advice on whether or not he should stop these medications. I do not feel this is related. Since he has not taken his home medications today we will give them here and watch him. He denies any chest pain. He is agreeable to lab work although states "they just did all this a few days ago". Chest x-ray shows no acute cardiopulmonary abnormality. Patient CBC shows no acute findings or changes from baseline. Patient does have an elevated D-dimer at 0.95. Chemistry shows negative troponin, normal BNP. Patient is negative for COVID-19 and influenza. Due to patient's chronic shortness of breath and elevated D-dimer I will do a CT of the chest to rule out PE. Patient's blood pressure is coming down nicely. He has taken his blood pressure medications and states he does not feel the shortness of breath as he thought this was related to his symptoms at home when taking his home medications. CT chest shows moderate to severe emphysematous changes of the upper lobes with minimal basilar atelectasis versus scar. Early infiltrate within the right lung base is difficult to exclude. No evidence of pulmonary embolus. Repeat EKG was completed; see note by Myke. I did talk with the patient about possible admission due to his COPD and hypoxia, patient declines. He states he feels better and "needs to work... that's why I am in [place]". Patient states he does have oxygen at home and is unconcerned about his hypoxia. I did not inform him of his EKG which is not concerning of a STEMI but does appear somewhat different from his previous ER visit. He is agreeable to a 3-hour troponin to be redrawn. Patient's vital signs are stable. Second troponin is unremarkable (negative). I have talked with the patient about today's findings, in addition to providing specific details for plan of care. Again admission was offered, patient declines. He is vitally stable satting at 90% on room air and states he has oxygen at home. Patient is requesting a nebulizer machine for home as he felt that the DuoNeb greatly improved his symptoms. Reassessment at the time of disposition demonstrates that the patient is in no acute distress. The patient is stable for discharge, counseling was provided and we discussed in great detail signs and symptoms that would prompt them to return to the Emergency Department. Medication, follow up and supportive care measures were reviewed and discussed. Voices understanding and is agreeable to plan of care. Denies any further questions or concerns at this time. Diagnostics: CBC, CMP, D-dimer, chest x-ray, troponin, UA Therapeutics: Solu-Medrol, DuoNeb, lisinopril Prescription: DuoNeb, azithromycin, prednisone and nebulizer machine Impression: COPD exacerbation Plan: 1. You were evaluated today on an emergent basis. Your cardiac enzymes are normal. Your CT of the chest shows a possible early pneumonia. Will place you in a antibiotic to cover for this. 2. Please use oxygen as needed. You can use the nebulizer machine, 1 ampoule every 4-6 hours as needed for increased shortness of breath. You can alternate Tylenol and ibuprofen as needed for pain and fever management. 3. We encourage you to follow up with your primary care provider and/or recommended specialist in the next few days for re-evaluation and further care/management. 4. If your symptoms should worsen, new symptoms develop or any of the signs and symptoms we discussed should arise please return to the emergency room or call 911 (if needed). Definitive disposition and diagnosis as appropriate pending reevaluation and review of above. - Related Data Allergies Allergy/AdvReac Type Severity Reaction Status Date / Time No Known Allergies Allergy Verified 10/15/21 10:37 Home Meds: Home Meds atorvaSTATin Calcium [Lipitor] 20 mg PO DAILY 30 Days #30 tablet 09/28/21 [Rx] carvediloL [Carvedilol] 12.5 mg PO DAILY 30 Days #30 tablet 09/28/21 [Rx] lisinopriL [Lisinopril] 5 mg PO DAILY 30 Days #30 tablet 09/28/21 [Rx] Albuterol Sulfate [Albuterol Sulfate Hfa] 8.5 gm IH Q4H #1 hfa.aer.ad 09/29/21 [Rx] Aspirin [Ecotrin EC] 81 mg PO DAILY #30 09/29/21 [Rx] Fluticasone Propion/Salmeterol [Advair 250-50 Diskus] 1 each IH Q8H #1 disk.w.dev 09/29/21 [Rx] levoFLOXacin [Levaquin] 750 mg PO DAILY #6 tab 09/29/21 [Rx] Albuterol/Ipratropium [DuoNeb 3.0-0.5 MG/3 ML] 1 ampule INH Q4HR PRN #1 box 10/15/21 [Rx] Azithromycin [Zithromax] 1 dose PO DAILY 5 Days #6 tab 10/15/21 [Rx] predniSONE [Prednisone] 40 mg PO DAILY 4 Days #8 tablet 10/15/21 [Rx] Past Medical History - Past Health History Medical/Surgical History: Denies Medical/Surgical History HEENT History: Reports: None Cardiovascular History: Reports: CAD, High Cholesterol, Hypertension Respiratory History: Reports: COPD, SOB Gastrointestinal History: Reports: None Other Genitourinary History: Pt voiding freely, denies trouble emptying bladder. Musculoskeletal History: Reports: Fracture Endocrine/Metabolic History: Reports: Obesity/BMI 30+ - Infectious Disease History Infectious Disease History: Reports: None - Past Surgical History Cardiovascular Surgical History: Reports: Coronary Artery Stent, Other (See Below) Musculoskeletal Surgical History: Reports: ORIF Social & Family History - Family History Family Medical History: No Pertinent Family History - Caffeine Use Caffeine Use: Reports: None - Living Situation & Occupation Living situation: Reports: , with Spouse, with Family (Daughter) Occupation: Employed ([employer]) ED ROS GENERAL - Review of Systems Review Of Systems: Comprehensive ROS is negative, except as noted in HPI. ED EXAM, GENERAL - Physical Exam Exam: See Below (See dictation) Course - Vital Signs Last Recorded V/S: Last Vital Signs Temp 97.7 F 10/15/21 10:38 Pulse 82 10/15/21 11:41 Resp 18 10/15/21 11:33 BP 156/77 H 10/15/21 11:41 Pulse Ox 88 L 10/15/21 11:33 - Orders/Labs/Meds Orders: Active Orders 24 hr Category Date Time Status RT Aerosol Therapy [RC] ASDIRECTED Care 10/15/21 10:47 Active Labs: Laboratory Tests 10/15/21 10/15/21 10/15/21 Range/Units 11:07 11:10 11:10 WBC 10.19 (4.0-11.0) K/uL RBC 6.83 H (4.50-5.90) M/uL Hgb 21.0 H (13.0-17.0) g/dL Hct 62.9 H (38.0-50.0) % MCV 92.1 (80.0-98.0) fL MCH 30.7 (27.0-32.0) pg MCHC 33.4 (31.0-37.0) g/dL RDW Std Deviation 53.1 (28.0-62.0) fl RDW Coeff of Imtiaz 16 H (11.0-15.0) % Plt Count 151 (150-400) K/uL Neut % (Auto) 64.9 (48.0-80.0) % Lymph % (Auto) 17.8 (16.0-40.0) % [place] % (Auto) 16.5 H (0.0-15.0) % Eos % (Auto) 0.4 (0.0-7.0) % Baso % (Auto) 0.4 (0.0-1.5) % Neut # (Auto) 6.6 H (1.4-5.7) K/uL Lymph # (Auto) 1.8 (0.6-2.4) K/uL [place] # (Auto) 1.7 H (0.0-0.8) K/uL Eos # (Auto) 0.0 (0.0-0.7) K/uL Baso # (Auto) 0.0 (0.0-0.1) K/uL Nucleated RBC % 0.0 /100WBC Nucleated RBCs # 0 K/uL D-Dimer, Quantitative (0.0-0.50) mg/L FEU Sodium 138 (136-148) mmol/L Potassium 4.4 (3.5-5.1) mmol/L Chloride 100 (98-107) mmol/L Carbon Dioxide 32.0 (21.0-32.0) mmol/L BUN 15 (7.0-18.0) mg/dL Creatinine 0.8 (0.8-1.3) mg/dL Est Cr Clr Drug Dosing 99.69 mL/min Estimated GFR (MDRD) > 60.0 ml/min Glucose 111 H (74-106) mg/dL Calcium 9.2 (8.5-10.1) mg/dL Total Bilirubin 1.1 H (0.2-1.0) mg/dL AST 25 (15-37) IU/L ALT 43 (14-63) IU/L Alkaline Phosphatase 84 (46-116) U/L Troponin I < 0.050 (0.000-0.056) ng/mL B-Natriuretic Peptide (<100) PG/ML Total Protein 8.7 H (6.4-8.2) g/dL Albumin 4.1 (3.4-5.0) g/dL Globulin 4.6 H (2.6-4.0) g/dL Albumin/Globulin Ratio 0.9 (0.9-1.6) Influenza Type A RNA NEGATIVE (NEGATIVE) Influenza Type B RNA NEGATIVE (NEGATIVE) SARS-CoV-2 RNA ([place]) NEGATIVE (NEGATIVE) 10/15/21 10/15/21 10/15/21 Range/Units 11:10 11:10 13:28 WBC (4.0-11.0) K/uL RBC (4.50-5.90) M/uL Hgb (13.0-17.0) g/dL Hct (38.0-50.0) % MCV (80.0-98.0) fL MCH (27.0-32.0) pg MCHC (31.0-37.0) g/dL RDW Std Deviation (28.0-62.0) fl RDW Coeff of Imtiaz (11.0-15.0) % Plt Count (150-400) K/uL Neut % (Auto) (48.0-80.0) % Lymph % (Auto) (16.0-40.0) % [place] % (Auto) (0.0-15.0) % Eos % (Auto) (0.0-7.0) % Baso % (Auto) (0.0-1.5) % Neut # (Auto) (1.4-5.7) K/uL Lymph # (Auto) (0.6-2.4) K/uL [place] # (Auto) (0.0-0.8) K/uL Eos # (Auto) (0.0-0.7) K/uL Baso # (Auto) (0.0-0.1) K/uL Nucleated RBC % /100WBC Nucleated RBCs # K/uL D-Dimer, Quantitative 0.95 H (0.0-0.50) mg/L FEU Sodium (136-148) mmol/L Potassium (3.5-5.1) mmol/L Chloride (98-107) mmol/L Carbon Dioxide (21.0-32.0) mmol/L BUN (7.0-18.0) mg/dL Creatinine (0.8-1.3) mg/dL Est Cr Clr Drug Dosing mL/min Estimated GFR (MDRD) ml/min Glucose (74-106) mg/dL Calcium (8.5-10.1) mg/dL Total Bilirubin (0.2-1.0) mg/dL AST (15-37) IU/L ALT (14-63) IU/L Alkaline Phosphatase (46-116) U/L Troponin I < 0.050 (0.000-0.056) ng/mL B-Natriuretic Peptide 81 (<100) PG/ML Total Protein (6.4-8.2) g/dL Albumin (3.4-5.0) g/dL Globulin (2.6-4.0) g/dL Albumin/Globulin Ratio (0.9-1.6) Influenza Type A RNA (NEGATIVE) Influenza Type B RNA (NEGATIVE) SARS-CoV-2 RNA ([place]) (NEGATIVE) Meds: Medications Discontinued Medications Generic Name Dose Route Start Last Admin Trade Name Freq PRN Reason Stop Dose Admin Albuterol/Ipratropium 3 ml 10/15/21 10:47 10/15/21 11:06 Albuterol/Ipratropium 3.0-0.5 Mg/3 Ml Neb Soln NEB 10/15/21 10:48 3 ml ONETIME ONE Administration Carvedilol 12.5 mg 10/15/21 10:49 10/15/21 11:41 Carvedilol 12.5 Mg Tab PO 10/15/21 10:50 12.5 mg ONETIME ONE Administration Iopamidol 100 ml 10/15/21 12:26 10/15/21 12:26 Iopamidol 755 Mg/Ml 500 Ml Multipack Bottle IVPUSH 10/15/21 12:27 100 ml ONETIME STA Administration Lisinopril 5 mg 10/15/21 10:48 10/15/21 11:41 Lisinopril 5 Mg Tab PO 10/15/21 10:49 5 mg ONETIME ONE Administration Methylprednisolone Sodium Succinate 125 mg 10/15/21 10:47 10/15/21 11:05 Methylprednisolone Sodium Succinate 125 Mg/2 Ml Sdv IVPUSH 10/15/21 10:48 125 mg ONETIME ONE Administration Departure - Departure Time of Disposition: 14:17 Disposition: Home, Self-Care 01 Clinical Impression: COPD exacerbation - Discharge Information Prescriptions: Albuterol/Ipratropium [DuoNeb 3.0-0.5 MG/3 ML] 1 ampule INH Q4HR PRN #1 box PRN Reason: Dyspnea predniSONE [Prednisone] 40 mg PO DAILY 4 Days #8 tablet Azithromycin [Zithromax] 1 dose PO DAILY 5 Days #6 tab Instructions: Chronic Obstructive Pulmonary Disease Exacerbation, [id number] Referrals: Zaid Farfan MD [Primary Care Provider] - Forms: ED Department Discharge Additional Instructions: The following information is given to patients seen in the emergency department who are being discharged to home. This information is to outline your options for follow-up care. We provide all patients seen in our emergency department with a follow-up referral. The need for follow-up, as well as the timing and circumstances, are variable depending upon the specifics of your emergency department visit. If you don't have a primary care physician on staff, we will provide you with a referral. We always advise you to contact your personal physician following an emergency department visit to inform them of the circumstance of the visit and for follow-up with them and/or the need for any referrals to a consulting specialist. The emergency department will also refer you to a specialist when appropriate. This referral assures that you have the opportunity for follow-up care with a specialist. All of these measure are taken in an effort to provide you with optimal care, which includes your follow-up. Under all circumstances we always encourage you to contact your private physician who remains a resource for coordinating your care. When calling for follow-up care, please make the office aware that this follow-up is from your recent emergency room visit. If for any reason you are refused follow-up, please contact the [facility] Emergency Department at and asked to speak to the emergency department charge nurse. [facility] [address] [place] [id number] [address] Thank you for choosing the [facility] emergency department in [place] for your medical needs today. It was a pleasure caring for you. Today you were seen in the emergency department for shortness of breath Your prescription was electronically sent to: [facility] pharmacy 1. You were evaluated today on an emergent basis. Your cardiac enzymes are normal. Your CT of the chest shows a possible early pneumonia. Will place you in a antibiotic to cover for this. Prescriptions (antibiotic, steroid and nebulizer solution) sent to [place] pharmacy. 2. Please use oxygen as needed. You can use the nebulizer machine, 1 ampoule every 4-6 hours as needed for increased shortness of breath. You can alternate Tylenol and ibuprofen as needed for pain and fever management. 3. We encourage you to follow up with your primary care provider and/or recommended specialist in the next few days for re-evaluation and further care/management. 4. If your symptoms should worsen, new symptoms develop or any of the signs and symptoms we discussed should arise please return to the emergency room or call 911 (if needed). Sepsis Event Note (ED) - Focused Exam Vital Signs: Vital Signs Temp Pulse Pulse Resp BP BP Pulse Ox 10/15/21 11:41 82 156/77 H 10/15/21 11:33 79 18 156/77 H 88 L 10/15/21 10:38 97.7 F 95 18 209/120 H 91 L - My Orders Last 24 Hours: My Active Orders 10/15/21 10:47 RT Aerosol Therapy [RC] ASDIRECTED - Assessment/Plan Last 24 Hours: My Active Orders 10/15/21 10:47 RT Aerosol Therapy [RC] ASDIRECTED
[2021-10-15] MEDS ORDERED: Albuterol/Ipratropium 3.0-0.5 MG/3 ML Neb Soln NEB ONE (10:47)
[2021-10-15] MEDS ORDERED: methylPREDNISolone Sodium Succinate 125 MG/2 ML SDV IVPUSH ONE (10:47)
[2021-10-15] MEDS ORDERED: Lisinopril 5 MG Tab PO ONE (10:48)
[2021-10-15] MEDS ORDERED: Carvedilol 12.5 MG Tab PO ONE (10:49)
--- NOTE | 2021-10-15 10:57 | PCM.EKG ---
#1 Interpretation Time: 10:43 EKG Interpretation Comments: 10:43 AM. 91, normal sinus rhythm, LVH by voltage criteria with peaked T waves. There is J-point elevation in V1 through V4 in the setting of LVH with normal inflection point. There is some subtle possible J-point elevation in aVL but the baseline is wavy. Minor ST depression in the inferior leads. As compared to EKG from 09/28/2021 these are change, however, as compared to 12/17/2019 these changes look relatively similar. I am informed the patient is not complaining of chest pain thus this does not in this context does no equate to acute STEMI. EKG will be repeated #2 Interpretation Time: 12:37 EKG Interpretation Comments: 83, normal sinus rhythm once again J-point elevation anterior precordial leads with peak T waves in effectively normal inflection point. Relatively unchanged as compared to prior
--- NOTE | 2021-10-15 11:23 | CR ---
Indication: Shortness of breath Comparison: None available. Technique: Single AP view chest Findings: There is hyperinflation and chronic interstitial change. There is no focal consolidation, effusion, or pneumothorax. The cardiomediastinal silhouette is within normal limits. The bony thorax is grossly intact. Impression: No acute cardiopulmonary abnormality. Dictated by Donny Paniagua MD @ 10/15/2021 11:21:39 AM (Electronically Signed)
[2021-10-15 11:50] LABS: BLOOD UREA NITROGEN,BUN 15 mg/dL (7.0-18.0); CHLORIDE,CL 100 mmol/L (98-107); GLUCOSE RANDOM 111 mg/dL (74-106); POTASSIUM,K 4.4 mmol/L (3.5-5.1); SODIUM,NA 138 mmol/L (136-148)
[2021-10-15 11:56] LABS: CORONAVIRUS COVID-19 NAA NEGATIVE (NEGATIVE); INFLUENZA A NAA NEGATIVE (NEGATIVE); INFLUENZA B NAA NEGATIVE (NEGATIVE)
[2021-10-15] MEDS ORDERED: Iopamidol 755 MG/ML 500 ML Multipack Bottle IVPUSH STA (12:26)
--- NOTE | 2021-10-15 13:14 | CT ---
Indication: Shortness of breath and elevated D-dimer Technique: Volumetric multidetector CT images of the chest were obtained after the administration of IV contrast. 100 cc Isovue 370 low osmolar intravenous contrast Comparison: None available. Findings: The thoracic inlet and thyroid gland are unremarkable. The thoracic aorta is non aneurysmal with scattered atherosclerotic calcification. There is no central filling defect to suggest pulmonary embolism. There are mildly reactive appearing mediastinal and hilar lymph nodes. There is mild central bronchial thickening. There is mild to moderate centrilobular emphysematous changes predominantly of the upper greater than lower lobes with basilar atelectasis and parenchymal scar. Minimal opacity within the right lung base is appreciated which may represent early infiltrate. There is no evidence of pulmonary mass or suspicious pulmonary nodule. The partially visualized upper abdominal viscera are within normal limits. The thoracic vertebral body heights are grossly maintained with moderate multilevel degenerative disc disease. There is no significant spondylolisthesis or displaced fracture. Impression: Moderate to severe emphysematous changes of the upper lobes with minimal basilar atelectasis versus scar. Early infiltrate within the right lung base is difficult to exclude. No evidence of pulmonary embolus. Please note that all CT scans at this facility use dose modulation, iterative reconstruction, and/or weight-based dosing when appropriate to reduce radiation dose to as low as reasonably achievable. Dictated by Donny Paniagua MD @ 10/15/2021 1:12:09 PM (Electronically Signed)
== END 2021-10-15 14:33 | disposition home or self-care (01) ==
LOC: MW.ED 10:34
DX: J44.1 Chronic obstructive pulmonary disease with (acute) exacerbation (principal); I25.10 Atherosclerotic heart disease of native coronary artery without angina pectoris; E78.00 Pure hypercholesterolemia, unspecified; I10 Essential (primary) hypertension; E66.9 Obesity, unspecified; Z68.31 Body mass index [BMI] 31.0-31.9, adult; Z79.82 Long term (current) use of aspirin; Z79.899 Other long term (current) drug therapy; Z20.822 Contact with and (suspected) exposure to COVID-19
CPT/HCPCS: 0240U; 36415; 71045; 71275; 80053; 83880; 84484; 85025; 85379; 93005; 96374; 99285; A9270; J2930; Q9967; J7620-GY